=== PATIENT | female | born 1965 | race African-American/Black ===

== ENCOUNTER 2018-05-29 12:49 | Emergency (ER) | payer BC ==
--- OUTSIDE RECORDS SUMMARY | 2018-05-29 12:51 | XMS REPORT ---
:1965 Author Organization e[employer]Works Care Team Providers Name Role Phone Elisabeth Negrete Provider Role Unavailable Allergies, Adverse Reactions, Alerts Substance Reaction Event Type penicillin Info Not Available Drug Allergy Amlodipine Besylate skin rash Drug Allergy Problems Problem Type Condition Code Onset Dates Condition Status Assessment Screening mammogram, encounter for Z12.31 Active Assessment Hypertension, unspecified type I10 Active Problem Anemia, unspecified type D64.9 Active Problem Abnormal RBC R71.8 Active Problem Hypokalemia E87.6 Active Problem Chronic kidney disease, unspecified N18.9 Active CKD stage Problem Hypertension, unspecified type I10 Active Problem Prediabetes R73.03 Active Problem Leukopenia, unspecified type D72.819 Active Assessment Thyroid disorder screen Z13.29 Active Assessment Hot flashes R23.2 Active Assessment Lipid screening Z13.220 Active Assessment Anemia, unspecified type D64.9 Active Assessment Chronic kidney disease, unspecified N18.9 Active CKD stage Assessment Abnormal RBC R71.8 Active Assessment Hypokalemia E87.6 Active Assessment Leukopenia, unspecified type D72.819 Active Assessment Prediabetes R73.03 Active Medications Medication Code Code Instructions Start End Status Dosage System Date Date Clarithromycin [facility] 40543997559 500 MG Orally Active 1 tablet Twice a day x10 days Multivitamin [facility] [address]70-[address]15 - Orally Active not defined Omeprazole [facility] 79943899796 20 MG Orally Active 1 capsule Once a day Belviq [facility] 27136910582 10 MG Orally Active 1 tablet Twice a day Zestoretic [facility] 91547034415 20-12.5 MG Active 1 tablet Orally Twice a day Doxazosin [facility] 60609595256 2 MG Orally Active 1 tablet Mesylate Once a day in evening Klor-Con M20 [facility] 16353179497 20 MEQ Orally Active 1 tablet Once a day with food Tylenol [facility] 95202251459 325 MG Orally Active 1 tablet every 4 hrs as needed Hair Skin Nails [facility] 89919692106 - Orally Active not defined Tessalon Perles [facility] 11142904085 100 MG Orally Active 1 capsule Three times a as needed day Results No Known Results Summary Purpose eClinicalWorks Submission
--- OUTSIDE RECORDS SUMMARY | 2018-05-29 12:52 | XMS REPORT ---
:1965 Author Organization eClinicalWorks Care Team Providers Name Role Phone Caden Elisabeth Provider Role Unavailable Allergies No Known Allergies Problems Problem Type Condition Code Onset Dates Condition Status Problem Hypokalemia E87.6 Active Problem Anemia, unspecified type D64.9 Active Problem Abnormal RBC R71.8 Active Problem Encounter for gynecological Z01.419 Active examination without abnormal finding Problem Chronic kidney disease, unspecified N18.9 Active CKD stage Problem Hypertension, unspecified type I10 Active Problem Prediabetes R73.03 Active Problem Leukopenia, unspecified type D72.819 Active Medications No Known Medications Results No Known Results Summary Purpose eClinicalWorks Submission
--- OUTSIDE RECORDS SUMMARY | 2018-05-29 12:52 | XMS REPORT ---
:1965 [facility] Care Team Providers Name Role Phone Jason Soto Provider Role Unavailable Allergies, Adverse Reactions, Alerts Substance Reaction Event Type penicillin Info Not Available Drug Allergy Amlodipine Besylate skin rash Drug Allergy Problems Problem Type Condition Code Onset Dates Condition Status Assessment Encounter for gynecological Z01.419 Active examination without abnormal finding Problem Hypokalemia E87.6 Active Problem Anemia, unspecified type D64.9 Active Problem Abnormal RBC R71.8 Active Problem Encounter for gynecological Z01.419 Active examination without abnormal finding Problem Chronic kidney disease, unspecified N18.9 Active CKD stage Problem Hypertension, unspecified type I10 Active Problem Prediabetes R73.03 Active Problem Leukopenia, unspecified type D72.819 Active Medications Medication Code Code Instructions Start End Status Dosage System Date Date Tylenol [facility] 73406890346 325 MG Orally Active 1 tablet every 4 hrs as needed Hair Skin Nails [facility] 51429948710 - Orally Active not defined Belviq [facility] 82987634103 10 MG Orally Active 1 tablet Twice a day Lisinopril [facility] 62282101441 20 MG Orally Active 1 tablet Once a day Omeprazole ND 23621954152 20 MG Orally Active 1 capsule Once a day Klor-Con M20 [facility] 02635624948 20 MEQ Orally Active 1 tablet Once a day with food Tessalon Perles [facility] 33918895358 100 MG Orally Active 1 capsule Three times a as needed day Zestoretic [facility] 13203016087 20-12.5 MG Active 1 tablet Orally Twice a day Doxazosin [facility] 44074334206 2 MG Orally Active 1 tablet Mesylate Once a day in evening Multivitamin [facility] 80[address]60 - Orally Active not defined Results Name Result Date Reference Range Unit Abnormality Flag URINALYSIS AUTO W/O SCOPE (83993) ----NIT neg 20180103 ----URO 0.2 20180103 ----PROTEIN neg 20180103 ----pH 7.0 20180103 ----BLO trce-intact 20180103 ----GLUCOSE neg 20180103 ----CHELITA neg 20180103 ----BILIRUBIN neg 20180103 ----KETONES neg 20180103 ----SPECIFIC GRAVITY 1.025 20180103 Summary Purpose eClinicalWorks Submission
--- OUTSIDE RECORDS SUMMARY | 2018-05-29 12:52 | XMS REPORT ---
:1965 Author Organization e[employer] Care Team Providers Name Role Phone aCden Elisabeth Provider Role Unavailable Allergies No Known Allergies Problems Problem Type Condition Code Onset Dates Condition Status Problem Anemia, unspecified type D64.9 Active Problem Hypokalemia E87.6 Active Problem Left shoulder pain, unspecified M25.512 Active chronicity Problem Abnormal RBC R71.8 Active Problem Encounter for gynecological Z01.419 Active examination without abnormal finding Problem Chronic kidney disease, unspecified N18.9 Active CKD stage Problem Hypertension, unspecified type I10 Active Problem Prediabetes R73.03 Active Problem Leukopenia, unspecified type D72.819 Active Medications No Known Medications Results No Known Results Summary Purpose eClinicalWorks Submission
--- OUTSIDE RECORDS SUMMARY | 2018-05-29 12:52 | XMS REPORT ---
:1965 Author Organization e[employer]Works Care Team Providers Name Role Phone Good Negreteen Provider Role Unavailable Allergies, Adverse Reactions, Alerts [...] Problem Leukopenia, unspecified type D72.819 Active Assessment Prediabetes R73.03 Active Assessment Left shoulder pain, unspecified M25.512 Active chronicity Assessment Leukopenia, unspecified type D72.819 Active Assessment URI, acute J06.9 Active Assessment Anemia, unspecified type D64.9 Active Assessment Hypertension, unspecified type I10 Active Medications Medication Code Code Instructions Start End Status Dosage System Date Date Multivitamin [facility] [address] - Orally Active not defined Zestoretic [facility] 31337866420 20-12.5 MG Active 1 tablet Orally Twice a day Tylenol [facility] 31370092748 325 MG Orally Active 1 tablet every 4 hrs as needed Klor-Con M20 [facility] 15281737916 20 MEQ Orally Active 1 tablet Once a day with food Tessalon Perles [facility] 14476362097 100 MG Orally Active 1 capsule Three times a as needed day Doxazosin [facility] 73439397835 2 MG Orally Active 1 tablet Mesylate Once a day in evening Hair Skin Nails [facility] 09137475244 - Orally Active not defined Belviq [facility] 54853756943 10 MG Orally Active 1 tablet Twice a day Omeprazole [facility] 69841423845 20 MG Orally Active 1 capsule Once a day Lisinopril [facility] 84008960942 20 MG Orally Active 1 tablet Once a day Results No Known Results Summary Purpose eClinicalWorks Submission
--- OUTSIDE RECORDS SUMMARY | 2018-05-29 12:52 | XMS REPORT ---
:1965 Author Organization eClinicalWorks Care Team Providers Name Role Phone Elisabeth Negrete Provider Role Unavailable Allergies No Known Allergies [...]
--- OUTSIDE RECORDS SUMMARY | 2018-05-29 12:52 | XMS REPORT ---
:1965 Author Organization eClinicalWorks Care Team Providers Name Role Phone Good Negreteen Provider Role Unavailable Allergies No Known Allergies Problems Problem Type Condition Code Onset Dates Condition Status Assessment Hypertension, unspecified type I10 Active Problem Hypokalemia E87.6 Active Problem Anemia, unspecified type D64.9 Active Problem Abnormal RBC R71.8 Active Problem Encounter for gynecological Z01.419 Active examination without abnormal finding Problem Chronic kidney disease, unspecified N18.9 Active CKD stage Problem Hypertension, unspecified type I10 Active Problem Prediabetes R73.03 Active Problem Leukopenia, unspecified type D72.819 Active Medications Medication Code Code Instructions Start End Status Dosage System Date Date Doxazosin [facility] 48233830096 2 MG Orally Once Active 1 tablet Mesylate a day in evening Results No Known Results Summary Purpose eClinicalWorks Submission
[2018-05-29] MEDS ORDERED: DEXAMETHASONE 4 MG/ML VIAL ONE (13:55)
[2018-05-29] MEDS ORDERED: CYCLOBENZAPRINE 10 MG TAB ONE (13:55)
[2018-05-29] MEDS ORDERED: KETOROLAC 30 MG/ML INJ ONE (13:56)
[2018-05-29] MEDS ORDERED: IBUPROFEN 400 MG TAB ONE (14:16)
[2018-05-29] MEDS ORDERED: predniSONE 20 MG TAB ONE (14:17)
--- NOTE | 2018-05-29 15:08 | RAD REPORT ---
EXAM DESCRIPTION: RAD - Lumbar Spine 3 Views - 05/29/2018 2:55 pm CLINICAL HISTORY: Back pain FINDINGS: The alignment of the lumbar spine is satisfactory. No fracture or dislocation is seen. Mild spondylosis involves the lumbar spine
[2018-05-29 16:07] LABS: Urine Blood TRACE (NEG); Urine Glucose NEGATIVE (NEG); Urine Protein NEGATIVE (NEG); Urine Specific Gravity >1.030 (1.005-1.030); Urine pH 5.5 (5.0-7.0)
--- NOTE | 2018-05-29 16:18 | RAD REPORT ---
EXAM DESCRIPTION: CT - Stone Protocol - 05/29/2018 3:53 pm CLINICAL HISTORY: Abdominal pain, back pain, hematuria COMPARISON: CT imaging December 2006 TECHNIQUE: Axial 5 mm thick images were obtained without oral or IV contrast. The [id number] span s the entirety of the system partially obscuring uppermost abdomen and lung bases. All CT scans are performed using dose optimization technique as appropriate and may include automated exposure control or mA/KV adjustment according to patient size. FINDINGS: No hydronephrosis is present and no obstructing ureteral calculi. No suspicious renal mass es. Isodense masses and pyelonephritis are not excluded on a stone protocol CT scan. No urinary bladd er suspicious finding. No significant adrenal finding. Uterus and ovaries show no suspicious findings . Imaged portions of the liver, spleen and pancreas show no suspicious findings on non-contrast imaging . No gallbladder or biliary tree abnormality identified. No suspicious bowel findings. No hernia, mass or bulky lymphadenopathy noted. No free air, free fluid or inflammatory stranding. No acute bone finding identifiable. Central canal detail is inherently limited but no gross abnormali ty seen. No paraspinal mass seen. Perispinal musculature is unremarkable. IMPRESSION: Noncontrast CT abdomen and pelvis imaging, as detailed above, shows no significant or woodson spicious finding. Isodense masses and pyelonephritis are not excluded on stone protocol technique.Full assessment is li mited in the absence of oral and IV contrast.
--- NOTE | 2018-05-29 16:21 | ER ---
Nurse's Notes [facility] Name: Santa Murray Age: 53 yrs Sex: Female : 1965 Arrival Date: 05/29/2018 Time: 12:54 Bed 16 Private MD: Diagnosis: Muscle spasm of back;Strain of muscle, fascia and tendon of lower back Presentation: 05/29 13:24 Presenting complaint: Patient states: Low back pain that began yesterday, describes as ph spasm/"catch", denies known injury, also denies urinary symptoms. Transition of care: patient was not received from another setting of care. Onset of symptoms was May 29, 2018. Risk Assessment: Do you want to hurt yourself or someone else? Patient reports no desire to harm self or others. Initial Sepsis Screen: Does the patient meet any 2 criteria? No. Patient's initial sepsis screen is negative. Does the patient have a suspected source of infection? No. Patient's initial sepsis screen is negative. Care prior to arrival: Medication(s) given: Aleve at 1130. 13:24 Method Of Arrival: Ambulatory ph 13:24 Acuity: TERE 4 ph Triage Assessment: 13:30 General: Appears in no apparent distress. well groomed, Behavior is calm, cooperative, tw2 appropriate for age. Musculoskeletal: Range of motion: intact in all extremities. [employer]: 13:26 LMP N/A - Post-menopause ph Historical: - Allergies: 13:26 No Known Allergies; ph - PMHx: 13:26 Hypertension; ph - Immunization history:: Adult Immunizations unknown. - Social history:: Smoking status: Patient/guardian denies using tobacco. - Ebola Screening: : No symptoms or risks identified at this time. - Family history:: not pertinent. - Hospitalizations: : No recent hospitalization is reported. Screenin:36 Abuse screen: Denies threats or abuse. Nutritional screening: No deficits noted. tw2 Tuberculosis screening: No symptoms or risk factors identified. Fall Risk None identified. Assessment: 13:30 General: Appears in no apparent distress. well groomed, Behavior is calm, cooperative, tw2 appropriate for age. Pain: Complains of pain in back. Neuro: Level of Consciousness is awake, alert, obeys commands, Oriented to person, place, time, situation. Cardiovascular: Patient's skin is warm and dry. Respiratory: Airway is patent Respiratory effort is even, unlabored, Respiratory pattern is regular, symmetrical. GI: No signs and/or symptoms were reported involving the gastrointestinal system. : No signs and/or symptoms were reported regarding the genitourinary system. EENT: No signs and/or symptoms were reported regarding the EENT system. Derm: No signs and/or symptoms reported regarding the dermatologic system. Musculoskeletal: Circulation, motion, and sensation intact. Range of motion: Reports pain in back. 14:35 Reassessment: Patient appears in no apparent distress at this time. No changes from tw2 previously documented assessment. Patient and/or family updated on plan of care and expected duration. Pain level reassessed. Patient is alert, oriented x 3, equal unlabored respirations, skin warm/dry/pink. 15:35 Reassessment: Patient appears in no apparent distress at this time. No changes from tw2 previously documented assessment. Patient and/or family updated on plan of care and expected duration. Pain level reassessed. Patient is alert, oriented x 3, equal unlabored respirations, skin warm/dry/pink. 16:36 Reassessment: Patient appears in no apparent distress at this time. No changes from tw2 previously documented assessment. Patient and/or family updated on plan of care and expected duration. Pain level reassessed. Patient is alert, oriented x 3, equal unlabored respirations, skin warm/dry/pink. Patient states symptoms have not improved. pt refused IM injections at this time, Dr. Garcia at bedside at this time.. Vital Signs: 13:26 BP 145 / 83; Pulse 84; Resp 18; Temp 97.8; Pulse Ox 100% on R/A; Weight 72.12 kg; ph Height 5 ft. 2 in. (157.48 cm); 14:29 BP 139 / 70; Pulse 69; Resp 17; Pulse Ox 95% on R/A; tw2 16:36 BP 158 / 85; Pulse 61; Resp 18; Pulse Ox 99% on R/A; tw2 13:26 Body Mass Index 29.08 (72.12 kg, 157.48 cm) ph ED Course: 12:54 Patient arrived in ED. mr 13:21 Pj Garcia MD is Attending Physician. rn 13:26 Triage completed. ph 13:27 Pj Garcia MD is Attending Physician. rn 13:27 Arm band placed on. ph 13:36 Ashley Moore, RN is Primary Nurse. tw2 13:36 Bed in low position. Call light in reach. tw2 14:30 Patient moved to radiology via wheelchair. jb2 14:55 XRAY Lumbar Spine (3 Views) In Process Unspecified. EDMS 15:53 CT Stone Protocol In Process Unspecified. EDMS 16:37 No provider procedures requiring assistance completed. Patient did not have IV access tw2 during this emergency room visit. Administered Medications: 14:05 Drug: Flexeril 10 mg Route: PO; tw2 16:37 Follow up: Response: No adverse reaction; Pain is unchanged, physician notified tw2 14:05 Drug: predniSONE 60 mg Route: PO; tw2 16:37 Follow up: Response: No adverse reaction tw2 14:05 Drug: Motrin 800 mg Route: PO; tw2 16:37 Follow up: Response: No adverse reaction tw2 14:10 Not Given (Patient Refused): TORadol 30 mg IVP once tw2 14:10 Not Given (Patient Refused): Decadron 10 mg IM once tw2 Outcome: 16:20 Discharge ordered by . rn 16:37 Patient left the ED. tw2 16:37 Discharged to home via wheelchair, with family. tw2 16:37 Condition: stable 16:37 Discharge instructions given to patient, significant other, Instructed on discharge instructions, follow up and referral plans. no drinking with medication, no driving heavy equipment, medication usage, Demonstrated understanding of instructions, follow-up care, medications, Prescriptions given X 3. Signatures: Dispatcher [employer] [facility] Divina Matias Jesse jb2 Pj Garcia MD MD rn Hall, Patricia, RN RN Ashley Moore RN RN tw2
--- NOTE | 2018-05-29 16:21 | EDPHYS ---
Physician Documentation [facility] Name: Santa Murray Age: 53 yrs Sex: Female : 1965 Arrival Date: 05/29/2018 Time: 12:54 Bed 16 Private MD: ED Physician Pj Garcia HPI: 05/29 15:06 This 53 yrs old Black Female presents to ER via Ambulatory with complaints of Back Pain.rn 15:06 The patient presents with pain that is acute, with no known mechanism of injury. The rn symptoms are located in the low back. 15:07 Onset: The symptoms/episode began/occurred yesterday. The pain does not radiate. rn Associated signs and symptoms: Pertinent positives: none Pertinent negatives: abdominal pain, chest pain, constipation, dysuria, fever, headache, hematuria, incontinence, numbness, tingling, urinary retention, vomiting, weakness. Modifying factors: The patient symptoms are alleviated by nothing, the patient symptoms are aggravated by any movement, lifting, movement. Severity of symptoms: At their worst the symptoms were moderate, in the emergency department the symptoms are unchanged. The patient has not experienced similar symptoms in the past. Reports low back pain, midline, non-radiating, worse with movement, no fever, no drug use, reports lifting a lot and moving things recently but no obvious injury or moment of injury. . 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 - Social history:: Smoking status: Patient/guardian denies using tobacco. - Ebola Screening: : No symptoms or risks identified at this time. - Family history:: not pertinent. - Hospitalizations: : No recent hospitalization is reported. ROS: 15:07 Constitutional: Negative for fever, chills, and weight loss, Cardiovascular: Negative rn for chest pain, palpitations, and edema, Respiratory: Negative for shortness of breath, cough, wheezing, and pleuritic chest pain, Abdomen/GI: Negative for abdominal pain, nausea, vomiting, diarrhea, and constipation, Back: Negative for injury : Negative for injury, bleeding, discharge, and swelling, MS/Extremity: Negative for injury and deformity, Skin: Negative for injury, rash, and discoloration, Neuro: Negative for headache, weakness, numbness, tingling, and seizure. Exam: 15:07 Constitutional: This is a well developed, well nourished patient who is awake, alert, rn appears in pain. Back: + lower lumbar perispinal and spinal tenderness, no stepoff Skin: Warm, dry with normal turgor. Normal color with no rashes, no lesions, and no evidence of cellulitis. MS/ Extremity: Pulses equal, no cyanosis. Neurovascular intact. Full, normal range of motion. Equal circumference. Neuro: Awake and alert, GCS 15, oriented to person, place, time, and situation. Cranial nerves II-XII grossly intact. Motor strength 5/5 in all extremities. Sensory grossly intact. Cerebellar exam normal. Antalgic gait. Vital Signs: 13:26 BP 145 / 83; Pulse 84; Resp 18; Temp 97.8; Pulse Ox 100% on R/A; Weight 72.12 kg; ph Height 5 ft. 2 in. (157.48 cm); 14:29 BP 139 / 70; Pulse 69; Resp 17; Pulse Ox 95% on R/A; tw2 16:36 BP 158 / 85; Pulse 61; Resp 18; Pulse Ox 99% on R/A; tw2 13:26 Body Mass Index 29.08 (72.12 kg, 157.48 cm) ph MDM: 13:27 Patient medically screened. rn 16:19 Differential diagnosis: arthritis, Fatigue Hydronephrosis Osteoarthritis Pyelonephritis rn ruptured disc, Scoliosis sprain, Ureterolithiasis. Data reviewed: vital signs, nurses notes, lab test result(s), radiologic studies, CT scan, plain films, and as a result, I will discharge patient. Counseling: I had a detailed discussion with the patient and/or guardian regarding: the historical points, exam findings, and any diagnostic results supporting the discharge/admit diagnosis, lab results, radiology results, the need for further work-up and treatment in the hospital. Response to treatment: the patient's symptoms have mildly improved after treatment, and as a result, I will discharge patient. Special discussion: I discussed with the patient/guardian in detail that at this point there is no indication for admission to the hospital. It is understood, however, that if the symptoms persist or worsen the patient needs to return immediately for re-evaluation. ED course: CT stone protocol negative for acute finding, neg UA, normal lumbar xray, declined IM meds, will dc home with steroids, pain meds, muscle relaxer prn.. 05/29 15:46 Order name: Urine Dipstick--Ancillary (enter results); Complete Time: 16:13 bd 05/29 15:46 Order name: Urine --Ancillary (enter results); Complete Time: 16:13 bd 05/29 13:39 Order name: XRAY Lumbar Spine (3 Views); Complete Time: 15:10 rn 05/29 15:32 Order name: CT Stone Protocol; Complete Time: 16:18 rn 05/29 13:39 Order name: Urine Dipstick-Ancillary (obtain specimen); Complete Time: 13:56 rn Administered Medications: 14:05 Drug: Flexeril 10 mg Route: PO; tw2 16:37 Follow up: Response: No adverse reaction; Pain is unchanged, physician notified tw2 14:05 Drug: predniSONE 60 mg Route: PO; tw2 16:37 Follow up: Response: No adverse reaction tw2 14:05 Drug: Motrin 800 mg Route: PO; tw2 16:37 Follow up: Response: No adverse reaction tw2 14:10 Not Given (Patient Refused): TORadol 30 mg IVP once tw2 14:10 Not Given (Patient Refused): Decadron 10 mg IM once tw2 Disposition: 05/29/18 16:20 Discharged to Home. Impression: Muscle spasm of back, Strain of muscle, fascia and tendon of lower back. - Condition is Stable. - Discharge Instructions: Back Pain, Adult, Muscle Cramps and Spasms, Back Exercises. - Prescriptions for Tylenol- Codeine #3 300-30 mg Oral Tablet - take 1 tablet by ORAL route every 6 hours As needed; 20 tablet. Cyclobenzaprine 10 mg Oral Tablet - take 1 tablet by ORAL route every 8 hours As needed; 20 tablet. Medrol (Angel) 4 mg Oral Tablets, Dose Pack - take 1 tablet by ORAL route as directed - follow package instructions; 1 packet. - Medication Reconciliation Form, Thank You Letter, Antibiotic Education, Prescription Opioid Use, Work release form form. - Follow up: Private Physician; When: As needed; Reason: Recheck today's complaints, Re-evaluation by your physician. - Problem is new. - Symptoms have improved. Signatures: Dispatcher [employer] Pj Flores MD MD rn Hall, Patricia, RN RN Ashley Nichols RN RN tw2 Corrections: (The following items were deleted from the chart) 13:23 13:21 Patient medically screened. rn rn 16:37 16:20 05/29/2018 16:20 Discharged to Home. Impression: Muscle spasm of back; Strain of tw2 muscle, fascia and tendon of lower back. Condition is Stable. Forms are Work release form, Medication Reconciliation Form, Thank You Letter, Antibiotic Education, Prescription Opioid Use. Follow up: Private Physician; When: As needed; Reason: Recheck today's complaints, Re-evaluation by your physician. Problem is new. Symptoms have improved. rn
[2018-05-29 16:48] VITALS: TEMP 97.8
[2018-05-29 16:51] VITALS: BP 158/85; O2SAT 99
== END 2018-05-29 16:37 | disposition home or self-care (01) ==
LOC: ER 12:49
DX: S39.012A Strain of muscle, fascia and tendon of lower back, initial encounter (principal); M62.830 Muscle spasm of back; I10 Essential (primary) hypertension
CPT/HCPCS: 72100; 74176; 76377; 81003; 81025; 99283; J7512